=== PATIENT | male | born 1965 | race Caucasian/White ===

== ENCOUNTER 2019-03-27 09:14 | Emergency (ER) | payer OTHER ==
[2019-03-27 10:07] VITALS: BP 121/71
--- NOTE | 2019-03-27 10:16 | UC ---
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 HAS HAD PAIN ON AND OFF FOR OVER TWO YEARS. MORE PAINFUL THE LAST FEW DAYS. WHILE ON VACACTION TWO WEEKS AGO PT DID A LOT OF WALKING AND HIKING. DENIES PAIN OF LOWER LEG OR CALF PAIN. " -pain is superior knee area medial and lateral aspects. -no locking or giving out but feels like lit juanjose give out bc it feels weak. -no redness. no calf or posterior knee or thigh swelling. -denies CKD/injry. PUD, HTN or any CI to NSAIDs. - History of Current Complaint Chief Complaint: UCLowerExtremity Stated Complaint: RT KNEE COMPLAINT Time Seen by Provider: 03/27/19 10:00 Pain Intensity: 3 - Allergies/Home Medications Allergies/Adverse Reactions: Allergies Allergy/AdvReac Type Severity Reaction Status Date / Time No Known Allergies Allergy Verified 03/27/19 09:57 Home Medications: Home Medications Ibuprofen TAB* [Advil TAB*] 400 mg PO Q6H PRN 03/27/19 [History Confirmed ] PMH/Surg Hx/FS Hx/Imm Hx - Surgical History Surgical History: Yes Surgery Procedure, Year, and Place: TESTICULAR TORSION AGE 12 - Social History Alcohol Use: Occasionally Substance Use Type: None Smoking Status (MU): Never Smoked Tobacco Review of Systems All Other Systems Reviewed And Are Negative: Yes Constitutional: Positive: Negative Skin: Positive: Negative Respiratory: Positive: Negative Cardiovascular: Positive: Negative Gastrointestinal: Positive: Negative Genitourinary: Positive: Negative Motor: Positive: Decreased ROM, Weakness Neurovascular: Positive: Negative Neurological: Positive: Negative Psychological: Positive: Negative Is Patient Immunocompromised?: No Physical Exam Triage Information Reviewed: Yes Appearance: Well-Appearing, No Pain Distress, Well-Nourished - very pleasant. Vital Signs: Initial Vital Signs Temp 97.5 F 03/27/19 09:59 Pulse 61 03/27/19 09:59 Resp 18 03/27/19 09:59 BP 121/71 03/27/19 09:59 Pulse Ox 99 03/27/19 09:59 Vital Signs Reviewed: Yes Eye Exam: Normal Respiratory Exam: Normal Cardiovascular Exam: Normal Abdominal Exam: Normal Abdomen Description: Positive: Nontender Musculoskeletal: Positive: Other: - mild-mod effusion superior medial and lateral knee, with mild faint bruising in those areas. FROM, no v/v laxity. neg A/P drawer sign. neg lachmans/mcmurrays Neurological Exam: Normal Neurological: Positive: Muscle Tone Normal Psychological Exam: Normal Skin Exam: Normal Knee Pain Course/Dx - Course Course Of Treatment: xray rt knee: "IMPRESSION: #. Small joint effusion without additional radiographic finding." - I noted some patellar spurring. -ice, rest, OTC EVA 600mgs MDD 3x/day, but can do less if not painful. -ortho f/u - Differential Dx/Diagnosis Differential Diagnosis/HQI/PQRI: Bursitis, Contusion, Sprain, Strain Provider Diagnosis: Right knee pain Discharge - Sign-Out/Discharge Documenting (check all that apply): Patient Departure All imaging exams completed and their final reports reviewed: Yes - Discharge Plan Condition: Stable Disposition: HOME Patient Education Materials: Swollen Knee Joint (ED) Referrals: Jordan Alexandra MD [Primary Care Provider] - Aris Conroy MD [Medical Doctor] - Additional Instructions: Iubuprofen 600mgs (that is 3 of the 200mgs OTC tabs) at a time up to three times per day. Ice, rest. follow up with orthopedics. - Billing Disposition and Condition Condition: STABLE Disposition: Home
== END 2019-03-27 11:23 | disposition home or self-care (01) ==
LOC: UCCORT 09:14
DX: M25.561 Pain in right knee (principal)
CPT/HCPCS: 99211; G0463